=== PATIENT | female | born 1955 | race Caucasian/White ===

== ENCOUNTER 2018-05-09 18:34 | Emergency (ER) | payer SELFPAY ==
[~2018-05-09] VITALS: Ht 177.8 cm; Wt 61.2 kg
--- NOTE | 2018-05-09 18:46 | NUR ---
ATTEMPTED TO CALL PATIENT IN FOR TRIAGE, PATIENT STATING, "I AM NOT READY TO COME IN."
--- NOTE | 2018-05-09 19:05 | NUR ---
ATTEMPTED TO CALL PATIENT IN A SECOND TIME, THIS TIME PATIENT IN BATHROOM.
--- NOTE | 2018-05-09 19:55 | NUR ---
BEDSIDE SPEAKING TO PT
[2018-05-09 19:57] VITALS: BP 126/65
== END 2018-05-09 20:07 | disposition home or self-care (01) ==
LOC: ER 18:41
DX: M79.673 Pain in unspecified foot (principal); R40.4 Transient alteration of awareness; R47.9 Unspecified speech disturbances
CPT/HCPCS: A4606; Z7502; Z7610

== ENCOUNTER 2018-05-10 08:30 | Emergency (ER) | payer SELFPAY ==
[~2018-05-10] VITALS: Ht 170.2 cm; Wt 68.0 kg
--- NOTE | 2018-05-10 08:35 | NUR ---
BIB RA TO BED 13, REPORTED FOUND ON THE STREET DUE TO BEHAVIORAL ISSUES, DANGER TO OTHERS. ON ROOM AIR AND TOLERATED WELL. BREATHING EVENLY, UNLABORED. AGITATED AT THIS TIME. PUT ON A RESTRAINT (BOTH HAND). DR. BRADLEY AT BEDSIDE FOR EVAL. WILL CONTINUE TO MONITOR FOR [place].
[2018-05-10] MEDS ORDERED: OLANZAPINE 10 MG VIAL IM ONE ×2 (08:52→09:00)
[2018-05-10 09:35] LABS: APPEARANCE,URINE SL CLOUDY (CLEAR); BASOPHILS % (AUTO) 0.4 % (0.0-2.0); BILIRUBIN,URINE NEGATIVE (NEGATIVE); BLOOD, URINE NEGATIVE Ery/uL (NEGATIVE); COLOR,URINE YELLOW (YELLOW); EOSINOPHILS % (AUTO) 0.9 % (0.0-6.0); HEMATOCRIT 39 % (33-45); HEMOGLOBIN 12.6 g/dL (11.5-14.8); KETONES,URINE 2+ (NEGATIVE); LEUKOCYTE ESTERASE ,URINE NEGATIVE (NEGATIVE); LYMPHOCYTES % (AUTO) 17.9 % (20.0-44.0); MEAN CORPUSCULAR HGB CONC 33 g/dl (31.0-36.0); MEAN CORPUSCULAR VOLUME 94 fL (82-100); MONOCYTES # (AUTO) 0.4 /CMM (0.1-1.30); MONOCYTES % (AUTO) 7.5 % (2.0-12.0); NEUTROPHILS # (AUTO) 3.9 /CMM (1.8-8.9); NEUTROPHILS % (AUTO) 73.3 % (43.0-81.0); NITRITE, URINE NEGATIVE (NEGATIVE); PH,URINE 7.5 (5.0-8.0); PLATELET COUNT (AUTO) 262 /CMM (150-450); PROTEIN,URINE NEGATIVE (NEGATIVE); RDW COEFFICIENT OF VARIATION 14.6 (11.5-15.0); RED BLOOD CELL COUNT(AUTO) 4.13 MIL/uL (4.0-5.2); UGLUCOSE NEGATIVE (NEGATIVE); UROBILINOGEN,URINE 0.2 EU/dL (0.2); WHITE BLOOD COUNT (AUTO) 5.3 K/uL (4.3-11.0)
[2018-05-10 09:42] LABS: BACTERIA,URINE Rare /HPF (None Seen); RBC,URINE 0-2 /HPF (0-2); SQUAMOUS EPITHELIAL CELL,UR Rare /HPF (None Seen); URINE AMORPHOUS PHOSPHATES Moderate /HPF (None Seen); WBC,URINE 0-2 /HPF (0-3)
[2018-05-10 09:44] LABS: CALCIUM, SERUM 8.8 mg/dL (8.5-10.1); CARBON DIOXIDE 28 mmol/L (21-32); CHLORIDE 101 mmol/L (98-107); CREATININE 0.8 mg/dL (0.6-1.3); GLUCOSE 122 mg/dL (74-106); POTASSIUM 3.5 mmol/L (3.5-5.1); SODIUM SERUM 140 mmol/L (136-145); UREA NITROGEN, BLOOD 15 mg/dL (7-18)
--- NOTE | 2018-05-10 09:44 | NUR ---
[employer] MARK[employer] INTERN WHEELED THE PATIENT TO CT.
[2018-05-10 09:50] LABS: ALANINE AMINOTRANSFERASE 41 U/L (12-78); ALKALINE PHOSPHATASE 80 U/L (46-116); ASPARTATE AMINOTRANSFERASE 36 U/L (15-37); BILIRUBIN,DIRECT 0.2 mg/dL (0.0-0.2); SALICYLATE < 0.2 mg/dL (2.8-20.0); TOTAL PROTEIN, SERUM 7.2 g/dL (6.4-8.2)
[2018-05-10 09:51] LABS: ACETAMINOPHEN < 2 ug/ml (10-30)
[2018-05-10 09:59] LABS: CREATINE KINASE, TOTAL 121 U/L (26-192); THYROID STIMULATING HORMONE 1.865 uIU/mL (0.358-3.74)
[2018-05-10 10:02] LABS: ALCOHOL, BLOOD < 3 mg/dL (0-0)
--- NOTE | 2018-05-10 15:00 | NUR ---
PATIENT STILL IN GURNEY, ASLEEP, BREATHING EVENLY. WILL CONTINUE TO MONITOR.
--- NOTE | 2018-05-10 19:23 | NUR ---
ENDORSED TO NEXT SHIFT RN TO CONTINUE CARE.
--- NOTE | 2018-05-10 21:15 | NUR ---
Pt awake and alert. Ambulatory with steady gait to restroom.
--- NOTE | 2018-05-10 21:25 | NUR ---
Admitting at bedside attempting to retrieve demographics. Pt being uncooperative and not answering questions. States first name is Valerie.
--- NOTE | 2018-05-10 22:01 | NUR ---
CALLED IRRIGATION SYSTEM OPERATOR YEYO AND WAS TOLD HE WOULD BE HERE SOON HE COULD
--- NOTE | 2018-05-11 06:29 | NUR ---
PT OK TO BE DISCHARGED HOME PER DR MCINTYRE. Patient is awake and alert to self, day, and place.PT ambulatory with a steady gait. Pt requesting for ride to [employer]. Pt provided with taxi voucher. Patient discharged to home in stable condition. Written and verbal after care instructions given. Patient verbalizes understanding of instruction.
[2018-05-11 06:30] VITALS: BP 120/78
== END 2018-05-11 06:31 | disposition home or self-care (01) ==
LOC: ER 08:32
DX: R41.82 Altered mental status, unspecified (principal)
CPT/HCPCS: 36415; 70450; 80048; 80076; 80305; 80329; 81001; 82550; 84443; 85025; 96372; 99285; A4606; G0480 ×2; J3490; Z7610; 81000-TC